=== PATIENT | male | born 1985 | race African-American/Black ===

== ENCOUNTER 2017-05-13 14:38 | Inpatient (IN) | payer SELFPAY ==
[2017-05-13] MEDS ORDERED: KETOROLAC TROMETHAMINE INJ/PF 30 MG/1 ML SDV IV ONE (15:04)
[2017-05-13] MEDS ORDERED: NORMAL SALINE 1000 ML 1,000 ML IV ONE ×2 (15:04→21:01)
--- NOTE | 2017-05-13 15:07 | ER Document Report ---
ED Medical Screen (RME) - General Chief Complaint: Abdominal Pain Stated Complaint: ABDOMINAL PAIN Time Seen by Provider: 05/13/17 15:03 Mode of Arrival: Wheelchair Information source: Patient - HPI Patient complains to provider of: abd pain Onset: This afternoon - pt. with onset of severe generalized abdominal pain starting earlier this afternoon. Took OTC pain meds without relief - Related Data Allergies/Adverse Reactions: Coconut * Allergy (Verified 05/13/17 14:44) Past Medical History Renal/ Medical History: Denies: Hx Peritoneal Dialysis Psychiatric Medical History: Reports: Hx Attention Deficit Hyperactivity Disorder, Hx Bipolar Disorder - Immunizations Hx Diphtheria, Pertussis, Tetanus Vaccination: No - unsure Physical Exam - Vital signs Vitals: Temp Pulse Resp BP Pulse Ox 97.8 F 65 16 134/72 H 100 05/13/17 14:44 05/13/17 14:44 05/13/17 14:44 05/13/17 14:44 05/13/17 14:44 Course - Vital Signs Vital signs: Temp Pulse Resp BP Pulse Ox 97.8 F 65 16 134/72 H 100 05/13/17 14:44 05/13/17 14:44 05/13/17 14:44 05/13/17 14:44 05/13/17 14:44
[2017-05-13] MEDS ORDERED: ONDANSETRON HCL INJ/PF 4 MG/2 ML SDV IV ONE (15:22)
--- NOTE | 2017-05-13 16:26 | RADIOLOGY REPORT (SQ) ---
EXAM DESCRIPTION: ACUTE ABDOMEN SERIES COMPLETED DATE/TIME: 05/13/2017 4:13 pm REASON FOR STUDY: abd pain COMPARISON: None. NUMBER OF VIEWS: Three views. TECHNIQUE: Frontal chest, supine abdomen and upright/decubitus abdomen radiographic images acquired. LIMITATIONS: None. FINDINGS: CHEST: Lungs clear of infiltrates. FREE AIR: None. No abnormal gas collections. BOWEL GAS PATTERN: Nonobstructive pattern. No dilated loops or air fluid levels. CALCIFICATIONS: No suspicious calcifications. HARDWARE: None in the abdomen. SOFT TISSUES: No gross mass or suggestion of organomegaly. BONES: No acute fracture. No worrisome bone lesions. OTHER: No other significant finding. IMPRESSION: NO RADIOGRAPHIC EVIDENCE FOR ACUTE ABDOMINAL DISEASE. TECHNICAL DOCUMENTATION: JOB ID: [id number] [employer]- All Rights Reserved
[2017-05-13 16:35] LABS: ABSOLUTE BASOPHILS # (AUTO) 0.1 10^3/uL (0.0-0.2); ABSOLUTE EOSINOPHILS # (AUTO) 0.1 10^3/uL (0.0-0.6); ABSOLUTE LYMPHOCYTES (AUTO) 0.7 10^3/uL (0.5-4.7); ABSOLUTE MONOCYTES (AUTO) 0.3 10^3/uL (0.1-1.4); ABSOLUTE NEUT (AUTO) 4.2 10^3/uL (1.7-8.2); EOSINOPHILS % (AUTO) 1.1 % (0-6); HEMATOCRIT 40.2 % (37.9-51.0); HEMOGLOBIN 13.1 g/dL (13.5-17.0); HGB HCT DIFFERENCE -0.9; LYMPHOCYTES % (AUTO) 12.8 % (13-45); MEAN CORPUSCULAR HEMOGLOBIN 26.8 pg (27.0-33.4); MEAN CORPUSCULAR HGB CONC 32.6 g/dL (32.0-36.0); MEAN CORPUSCULAR VOLUME 82 fl (80-97); RED BLOOD COUNT 4.89 10^6/uL (4.35-5.55); RED CELL DISTRIBUTION WIDTH 16.4 % (11.5-14.0); SEGMENTED NEUTROPHILS % (AUTO) 79.1 % (42-78); WHITE BLOOD COUNT 5.3 10^3/uL (4.0-10.5)
[2017-05-13 17:02] LABS: ALANINE AMINOTRANSFERASE 368 U/L (21-72); ALBUMIN 3.9 g/dL (3.5-5.0); ALKALINE PHOSPHATASE 75 U/L (38-126); ANION GAP 10 (5-19); ASPARTATE AMINO TRANSFERASE 603 U/L (17-59); BILIRUBIN,DIRECT 0.7 mg/dL (0.0-0.4); BILIRUBIN,TOTAL 0.9 mg/dL (0.2-1.3); BLOOD UREA NITROGEN 12 mg/dL (7-20); CALCIUM 9.1 mg/dL (8.4-10.2); CARBON DIOXIDE 28 mmol/L (22-30); CHLORIDE 104 mmol/L (98-107); GLUCOSE 88 mg/dL (75-110); LIPASE 103.4 U/L (23-300); POTASSIUM 3.8 mmol/L (3.6-5.0); SODIUM 141.7 mmol/L (137-145); TOTAL PROTEIN 6.8 g/dL (6.3-8.2)
[2017-05-13 17:27] LABS: APPEARANCE,URINE CLEAR; BILIRUBIN,URINE NEGATIVE (NEGATIVE); GLUCOSE, URINE NEGATIVE (NEGATIVE); KETONES,URINE NEGATIVE (NEGATIVE); LEUKOCYTE ESTERASE,URINE NEGATIVE (NEGATIVE); NITRITE,URINE NEGATIVE (NEGATIVE); PROTEIN,URINE 30 mg/dL (NEGATIVE); URINE SPECIFIC GRAVITY 1.027; UROBILINOGEN,URINE NEGATIVE mg/dL (<2.0)
--- NOTE | 2017-05-13 18:35 | ER Document Report ---
ED GI/ - General Chief Complaint: Abdominal Pain Stated Complaint: ABDOMINAL PAIN Time Seen by Provider: 05/13/17 15:03 Mode of Arrival: Wheelchair Notes: The patient is a 31-year-old male, past medical history bipolar, presents with 1 day of generalized abdominal cramping and RUQ pain. Patient says that he drinks 2 beers a day. He is also taken Tylenol for his dental pain and has not yet followed up with a dentist for his chronic right lower molar pain. Patient also says that he is having mild shortness of breath when the abdominal pain comes. Patient is eating in the emergency room. He denies chest pain, current shortness of breath, diarrhea, constipation, fevers, back pain, urinary symptoms or rash. - Related Data Allergies/Adverse Reactions: Coconut * Allergy (Verified 05/13/17 14:44) Past Medical History - General Information source: Patient - Social History Smoking Status: Unknown if Ever Smoked Family History: Reviewed & Not Pertinent Patient has suicidal ideation: No Patient has homicidal ideation: No Renal/ Medical History: Denies: Hx Peritoneal Dialysis Psychiatric Medical History: Reports: Hx Attention Deficit Hyperactivity Disorder, Hx Bipolar Disorder - Immunizations Hx Diphtheria, Pertussis, Tetanus Vaccination: No - unsure Review of Systems - Review of Systems Notes: REVIEW OF SYSTEMS: CONSTITUTIONAL: -fevers, -chills EENT: -eye pain, -difficulty swallowing, -nasal congestion, +dental pain CARDIOVASCULAR:-chest pain, -syncope. RESPIRATORY: -cough, +SOB GASTROINTESTINAL: +abdominal pain, - nausea, -vomiting, -diarrhea GENITOURINARY: -dysuria, -hematuria MUSCULOSKELETAL: -back pain, -neck pain SKIN: -rash or skin lesions. HEMATOLOGIC: -easy bruising or bleeding. LYMPHATIC: -swollen, enlarged glands. NEUROLOGICAL: -altered mental status or loss of consciousness, -headache, - neurologic symptoms PSYCHIATRIC: -anxiety, -depression. ALL OTHER SYSTEMS REVIEWED AND NEGATIVE. Physical Exam - Vital signs Vitals: Temp Pulse Resp BP Pulse Ox 97.8 F 65 16 134/72 H 100 05/13/17 14:44 05/13/17 14:44 05/13/17 14:44 05/13/17 14:44 05/13/17 14:44 - Notes Notes: PHYSICAL EXAMINATION: GENERAL: Well-appearing, well-nourished and in no acute distress. HEAD: Atraumatic, normocephalic. EYES: Pupils equal round and reactive to light, extraocular movements intact, sclera anicteric, conjunctiva are normal. ENT: nares patent, oropharynx clear without exudates. Moist mucous membranes. NECK: Normal range of motion, supple without lymphadenopathy LUNGS: Breath sounds clear to auscultation bilaterally and equal. No wheezes rales or rhonchi. HEART: Regular rate and rhythm without murmurs ABDOMEN: Soft, mild RUQ tenderness, normoactive bowel sounds. No guarding, no rebound. No masses appreciated. EXTREMITIES: Normal range of motion, no pitting or edema. No cyanosis. NEUROLOGICAL: Cranial nerves grossly intact. Normal speech, normal gait. Normal sensory and motor exams. PSYCH: Normal mood, normal affect. SKIN: Warm, Dry, normal turgor, no rashes or lesions noted. Course - Re-evaluation Re-evalutation: Patient with right upper quadrant abdominal pain and elevated LFTs. His right upper quadrant ultrasound shows thickened gallbladder wall and pericholecystic fluid. Spoke to Dr. Bullard at 21:00 and he will admit patient as inpatient to surgical floor. Will keep patient n.p.o., begin antibiotics and provide IV fluids. Patient's pain is under control at this time and he is not nauseous. - Vital Signs Vital signs: Temp Pulse Resp BP Pulse Ox 97.8 F 65 16 134/72 H 100 05/13/17 14:44 05/13/17 14:44 05/13/17 14:44 05/13/17 14:44 05/13/17 14:44 - Laboratory Result Diagrams: 05/13/17 15:40 05/13/17 15:40 Laboratory results interpreted by me: 05/13/17 05/13/17 05/13/17 15:40 15:40 16:55 Hgb 13.1 L MCH 26.8 L RDW 16.4 H Plt Count 100 L Seg Neutrophils % 79.1 H Lymphocytes % 12.8 L Direct Bilirubin 0.7 H AST 603 H ALT 368 H Urine Protein 30 H Urine Ascorbic Acid 40 H - Diagnostic Test Radiology reviewed: Image reviewed, Reports reviewed Radiology results interpreted by me: RUQ US: thickened gallbladder wall, no gallstones, moderate pericholecystic fluid Discharge - Discharge Clinical Impression: Cholecystitis Condition: Stable Disposition: ADMITTED INPATIENT Admitting Provider: Surgical[facility] - [facility] Unit Admitted: Surgical Floor
--- NOTE | 2017-05-13 20:52 | RADIOLOGY REPORT (SQ) ---
EXAM DESCRIPTION: U/S ABDOMEN LIMITED W/O DOP COMPLETED DATE/TIME: 05/13/2017 8:37 pm REASON FOR STUDY: RUQ tenderness, elevated LFTs COMPARISON: None. TECHNIQUE: Dynamic and static grayscale images acquired of the abdomen and recorded on PACS. Additio nal selected color Doppler and spectral images recorded. LIMITATIONS: None. FINDINGS: PANCREAS: No masses. Visualized pancreatic duct normal caliber. LIVER: No masses. Echotexture normal. LIVER VASCULATURE: Normal directional flow of the main portal vein and hepatic veins. GALLBLADDER: No stones identified. Abnormal wall thickness, 4 mm. Moderate pericholecystic fluid. ULTRASOUND-DETECTED SON'S SIGN: Negative. INTRAHEPATIC DUCTS AND COMMON DUCT: CBD and intrahepatic ducts normal caliber. No filling defects. INFERIOR VENA CAVA: Normal flow. AORTA: No aneurysm. RIGHT KIDNEY: Normal size. Normal echogenicity. No solid or suspicious masses. No hydronephrosis. No calcifications. PERITONEAL AND RIGHT PLEURAL SPACE: No ascites or effusions. OTHER: No other significant findings. IMPRESSION: No gallstones identified but there is Abnormal gallbladder wall thickness, 4 mm, and Mod erate pericholecystic fluid. TECHNICAL DOCUMENTATION: JOB ID: [id number] [employer]- All Rights Reserved
[2017-05-13] MEDS ORDERED: AMPICILLIN SOD/SULBACTAM 3 GM VIAL IV ONE (20:58)
[2017-05-13] MEDS ORDERED: NICOTINE 21 MG/24 HR PATCH.TD24 TD ONE (21:05)
[2017-05-13] MEDS ORDERED: HYDROMORPHONE HCL INJ/PF 2 MG/ML AMPULE IV ONE (21:05)
--- NOTE | 2017-05-13 21:46 | PDOC H&P ---
History of Present Illness Admission Date/PCP: 05/13/17 21:17 History of Present Illness: SIERRA SANTIAGO is a 31 year old male who presents to the emergency department also [facility] complaining of acute onset abdominal pain. Patient has a history of bipolar disorder, and is unaccompanied by any other adult, so his history of presenting illness is somewhat sketchy. He states that he took a bunch of pain medication and Tylenol for toothache earlier today. He then developed acute on set of abdominal pain primarily epigastric associated nausea and vomiting. He said he had a bowel movement during 1 of his episodes of vomiting. Patient denies previous episodes of abdominal pain, change in his bowel habits, or constitutional symptoms. He denies history of trauma. He does not know if a family history of gallbladder disease. He was seen in the emergency department where is found to have significant right upper quadrant tenderness, elevated transaminases, and gallbladder ultrasonography showing findings consistent with acute cholecystitis. Surgery was consulted and he was advised admission. 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 Social History Smoking Status: Current Every Day Smoker Family History Family History: Reviewed & Not Pertinent Parental Family History Reviewed: Yes Children Family History Reviewed: Yes Sibling(s) Family History Reviewed.: Yes Medication/Allergy Allergies/Adverse Reactions: Coconut * Allergy (Verified 05/13/17 14:44) Review of Systems Constitutional: PRESENT: as per HPI Eyes: PRESENT: as per HPI Ears: PRESENT: as per HPI Nose, Mouth, and Throat: PRESENT: as per HPI, headache(s) Cardiovascular: PRESENT: as per HPI Respiratory: PRESENT: as per HPI Genitourinary: PRESENT: as per HPI Musculoskeletal: PRESENT: as per HPI Integumentary: PRESENT: as per HPI Physical Exam Vital Signs: Temp Pulse Resp BP Pulse Ox 97.8 F 65 16 134/72 H 100 05/13/17 14:44 05/13/17 14:44 05/13/17 14:44 05/13/17 14:44 05/13/17 14:44 General appearance: PRESENT: no acute distress Head exam: PRESENT: normocephalic Eye exam: PRESENT: other - Right eye ptotic, sclerotic, with loss of volume and EOM not intact. Teeth exam: PRESENT: poor dentation, other Neck exam: PRESENT: full ROM Respiratory exam: PRESENT: rhonchi Cardiovascular exam: PRESENT: RRR Pulses: PRESENT: normal dorsalis pedis pul, +1 pedal pulses bilateral, +2 pedal pulses bilateral Vascular exam: PRESENT: normal capillary refill GI/Abdominal exam: PRESENT: other - Quizzically tender right upper quadrant with guarding Rectal exam: PRESENT: deferred Neurological exam: PRESENT: alert, altered, awake Psychiatric exam: PRESENT: other - Patient has a somewhat difficulty staying focused on the conversation easily distracted Skin exam: PRESENT: other - Multiple tattoos Results Impressions: Acute Abdomen Series 05/13/17 15:03 IMPRESSION: NO RADIOGRAPHIC EVIDENCE FOR ACUTE ABDOMINAL DISEASE. Abdomen Ultrasound 05/13/17 19:17 IMPRESSION: No gallstones identified but there is Abnormal gallbladder wall thickness, 4 mm, and Moderate pericholecystic fluid. Assessment & Plan - Diagnosis (1) Cholecystitis Is this a current diagnosis for this admission?: Yes Plan: As evidenced by clinical history, elevated transaminases, and abnormal ultrasonography showing gallbladder wall thickening and pericholecystic fluid. Plan: 1. Keep n.p.o., IV fluids, intravenous antibiotics 2. We will set patient up for laparoscopic, possible open cholecystectomy in the morning. 3. Patient somewhat confused, possibly scared about the expectation to stay in the hospital, and undergo surgery in the next 24 hours. Hopefully his mother will arrive and Allay some of his fears (2) Bipolar disorder Is this a current diagnosis for this admission?: Yes (3) Smoker Is this a current diagnosis for this admission?: Yes - Time Time Spent: 30 to 50 Minutes Critical Time spent with patient: Less than 15 minutes Anticipated discharge: Home - Inpatient Certification Based on my medical assessment, after consideration of the patient's comorbidities, presenting symptoms, or acuity I expect that the services needed warrant INPATIENT care.: Yes I certify that my determination is in accordance with my understanding of Medicare's requirements for reasonable and necessary INPATIENT services [42 CFR 412.3e].: Yes Medical Necessity: Need For IV Fluids, Need for Pain Control, Need for IV Antibiotics, Need for Surgery
[2017-05-13] MEDS ORDERED: ONDANSETRON HCL INJ/PF 4 MG/2 ML SDV IV PRN (21:48)
[2017-05-14] MEDS: RINGERS SOLUTION,LACTATED 1,000 ML IV PRN ×2 (01:25→20:59)
[2017-05-14] MEDS: HYDROMORPHONE HCL INJ/PF 2 MG/ML AMPULE IV PRN ×2 (01:26→08:33)
[2017-05-14] MEDS ORDERED: AMPICILLIN SOD/SULBACTAM 3 GM VIAL IV PRN (06:00)
[2017-05-14] MEDS: AMPICILLIN SODIUM/SULBACTAM NA 3 GM in NORMAL SALINE 100 ML IV SCH ×3 (06:43→21:05)
[2017-05-14] MEDS ORDERED: BUPIVACAINE HCL 0.25 % INJ/PF (2.5 MG/1 ML) 30 ML VIAL ONE (08:26)
[2017-05-14] MEDS ORDERED: HYDROMORPHONE HCL INJ/PF 2 MG/ML AMPULE ONE (09:30)
[2017-05-14] MEDS ORDERED: FENTANYL CITRATE INJ/PF 100 MCG/2 ML AMPUL ONE (09:30)
[2017-05-14] MEDS ORDERED: ACETAMINOPHEN 100 ML IV ONE (09:31)
[2017-05-14] MEDS ORDERED: IBUPROFEN INJ 800 MG/8 ML VIAL IV ONE (09:31)
[2017-05-14] MEDS ORDERED: EPHEDRINE SULFATE INJ 50 MG/1 ML AMPULE ONE (09:31)
[2017-05-14] MEDS ORDERED: MIDAZOLAM 2 MG/2 ML INJ ONE (09:31)
[2017-05-14] MEDS ORDERED: PROPOFOL INJ 200 MG/20 ML VIAL IV ONE (09:31)
[2017-05-14] MEDS ORDERED: DIPHENHYDRAMINE HCL 50 MG/ML VIAL IV PRN (10:43)
[2017-05-14] MEDS ORDERED: MEPERIDINE HCL/PF INJ 25 MG/1 ML DISP.SYRIN IV PRN (10:43)
[2017-05-14] MEDS ORDERED: FENTANYL CITRATE INJ/PF 100 MCG/2 ML AMPUL IV PRN ×3 (10:43)
[2017-05-14] MEDS ORDERED: PROMETHAZINE HCL INJ 25 MG/1 ML VIAL IV PRN ×2 (10:43)
[2017-05-14] MEDS ORDERED: ONDANSETRON HCL INJ/PF 4 MG/2 ML SDV IV PRN ×3 (10:43→11:31)
[2017-05-14] MEDS ORDERED: KETOROLAC TROMETHAMINE 10 MG TABLET PO PRN (11:31)
--- NOTE | 2017-05-14 11:31 | Operative Report ---
Operative Report DATE OF SURGERY: 05/14/17 PREOPERATIVE DIAGNOSIS: Acute cholecystitis POSTOPERATIVE DIAGNOSIS: Same with sludge OPERATION: Laparoscopic cholecystectomy SURGEON: THANIA CASTANEDA ANESTHESIA: GA TISSUE REMOVED OR ALTERED: 1 gallbladder with contents COMPLICATIONS: None ESTIMATED BLOOD LOSS: 50 INTRAOPERATIVE FINDINGS: See below PROCEDURE: The patient was taken to the preop holding area the main operating room where general anesthesia was induced. Arms were abducted, abdomen exposed, prepped and draped in sterile fashion. Surgical plan surgical timeout were conducted. Skin was any stopped with quarter percent Marcaine above the umbilicus in the subxiphoid area in the subcostal region. Initially a supraumbilical incision was made vertically with a 15 blade, an attempt was made to insert a Veress needle into the peritoneal cavity but we did not get a nice second pop sound consistent with a peritoneal penetration. Therefore I approach the right upper quadrant. Knife wound was made with 15 blade in the subcostal region, and a Veress needle was inserted peritoneal cavity. We immediately got back some blood and a little bit of bile so the Veress needle was removed. It was repositioned in a more caudal direction and we are successfully able to establish pneumoperitoneum. The Veress needle was removed and a 5 mm port was inserted and a 5 mm viewing scope was inserted. Under direct visualization without difficulty 3 additional ports were placed in the subxiphoid supraumbilical and subcostal positions for total of 4 ports We did visualize the small hole made in the anterior surface of the right lobe of the liver which was draining some blood and so this was managed with hook cautery and a small piece of Surgicel and the bleeding abated. We continue to monitor this area throughout the duration of the operation there was no further bleeding We turned our attention to the gallbladder which was acutely inflamed edematous but without any adhesions to the omentum and surrounding structures. The gallbladder was aspirated of approximately 100 cc of bile using the laparoscopic trocar device. The gallbladder was then grasped on the fundus and infundibulum and elevated away from the liver. We took down some adhesions between the infundibulum and the gastroduodenal area which mostly consisted of edema and some thin fibrous bloody adhesions but because of poor elevation of the gallbladder away from the liver bed, felt that a top down approach would be more effective and safe. Therefore the graspers were repositioned and we took the gallbladder down from the fundus all the way down to its neck. This proceeded in uneventful fashion. Visualization was excellent. The patient a significant amount of edema surrounding the gallbladder consistent with acute cholecystitis. Nonetheless this was an excellent approach and we eventually have the gallbladder suspended from its neck. There was never clearly identified cystic artery. 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 We did clip what we thought was one of those branches proximally 2 times once distally divided with scissors. The gallbladder was now suspended by its neck, as well as possibly the second branch of the cystic artery. We elected to put a 0 PDS loop around and so this was affected by placing 1 PDS loop around the neck of the gallbladder and the second midway down the cystic duct. Photos were taken. Cystic duct was divided and the gallbladder was removed from the patient at the supraumbilical port site We returned the peritoneal cavity irrigated out some residual by check for bleeding there was none. Sponge and counts correct. All ports removed under direct visualization pneumoperitoneum evacuated. Of note we did we inspected the right lobe of the liver where the Veress needle had penetrated the Kendall's capsule and there was no evidence of bile or bleeding so no drain was felt to be indicated We felt the operation was complete. Sponge and needle counts are correct. 0 Vicryl was used to close the supraumbilical fascial defect and all of the incisions closed with 3-0 Vicryl. Patient tolerated the procedure well, extubated, taken recovery in stable condition.
[2017-05-14] MEDS ORDERED: NALOXONE HCL INJ/PF 0.4 MG/1 ML SDV ONE (11:46)
[2017-05-14] MEDS ORDERED: DEXAMETHASONE SOD PHOSPHATE INJ 4 MG/1 ML VIAL ONE (12:26)
[2017-05-14] MEDS ORDERED: PHENYLEPHRINE HCL INJ/PF 10 MG/1 ML SDV ONE (12:26)
[2017-05-14] MEDS ORDERED: GLYCOPYRROLATE INJ 0.4 MG/2 ML VIAL ONE (12:26)
[2017-05-14] MEDS ORDERED: NEOSTIGMINE METHYLSULFATE 10 MG/10 ML VIAL ONE (12:26)
[2017-05-14] MEDS ORDERED: SUCCINYLCHOLINE CHLORIDE INJ 200 MG/10 ML VIAL ONE (12:26)
[2017-05-14] MEDS ORDERED: ONDANSETRON HCL INJ/PF 4 MG/2 ML SDV ONE (12:26)
[2017-05-14] MEDS ORDERED: LIDOCAINE 2% INJ-PF (20 MG/ML) 10 ML AMPUL ONE (12:26)
[2017-05-14] MEDS ORDERED: ROCURONIUM BROMIDE INJ 50 MG/5 ML VIAL IV ONE (12:26)
[2017-05-14] MEDS: KETOROLAC TROMETHAMINE INJ/PF 30 MG/1 ML SDV IV PRN ×2 (13:04→21:05)
[2017-05-14] MEDS: MORPHINE SULFATE 10 MG/ML INJ IV PRN (18:17)
--- NOTE | 2017-05-14 20:24 | EKG REPORT ---
SEVERITY:- BORDERLINE ECG - SINUS RHYTHM NONSPECIFIC ST-T CHANGES- INFERIOR LEADS : Confirmed by: Catrachito Winters MD 14-May-2017 20:23:24
[2017-05-14] MEDS ORDERED: RINGERS SOLUTION,LACTATED 1,000 ML IV PRN (21:29)
[2017-05-14] MEDS ORDERED: NICOTINE 14 MG/24 HR PATCH.TD24 TD SCH (22:00)
[2017-05-15] MEDS: AMPICILLIN SODIUM/SULBACTAM NA 3 GM in NORMAL SALINE 100 ML IV SCH ×2 (05:43→13:13)
[2017-05-15] MEDS: KETOROLAC TROMETHAMINE INJ/PF 30 MG/1 ML SDV IV PRN (07:45)
[2017-05-15] MEDS: MORPHINE SULFATE 10 MG/ML INJ IV PRN (07:46)
[2017-05-15 12:32] VITALS: BP 124/74
[2017-05-15] MEDS ORDERED: BISACODYL 10 MG SUPP.RECT PR ONE (14:00)
== END 2017-05-15 14:35 | disposition home or self-care (01) | DRG 419 ==
LOC: ER 14:38 → EH 21:17 → UNDOADMIN 21:17 → EH 21:47 → 4N 05-14 00:09
PROVIDERS: ATTEND Surgery
PROC: 0FT44ZZ Resection of Gallbladder, Percutaneous Endoscopic Approach (ICD-10-PCS; principal; 2017-05-14 10:00)
DX: K81.0 Acute cholecystitis (principal); F31.9 Bipolar disorder, unspecified; F90.9 Attention-deficit hyperactivity disorder, unspecified type; H54.41 Blindness, right eye, normal vision left eye; Z79.899 Other long term (current) drug therapy; F17.200 Nicotine dependence, unspecified, uncomplicated; Z91.018 Allergy to other foods
CPT/HCPCS: 36415; 74022; 76705; 790; 80053; 81001; 83690; 85025; 88304; 93005; 93010; 96361; 96374; 96375; 99285; J0131; J0295; J0330; J1100; J1170; J1741; J1885; J2250; J2270; J2310; J2370; J2405; J2704; J3010; J3490; J7030; J7120

== ENCOUNTER 2018-03-23 08:10 | Emergency (ER) | payer SELFPAY ==
[2018-03-23 08:15] VITALS: BP 120/73
[2018-03-23] MEDS ORDERED: POLYMYXIN B SULFATE/TMP OPH SOLN (10 ML/ER DISP) OD ONE (08:49)
--- NOTE | 2018-03-23 08:51 | ER Document Report ---
ED Eye Complaint - General Chief Complaint: Eye Problem Stated Complaint: EYE SWELLING Time Seen by Provider: 03/23/18 08:32 Mode of Arrival: Ambulatory Information source: Patient Notes: Patient is a 32-year-old male who presents to the ER today for right eye redness and watering, itching and yellow drainage that started 3 days ago. 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 TRAVEL OUTSIDE OF THE [place] IN LAST 30 DAYS: No - Related Data Allergies/Adverse Reactions: Coconut * Allergy (Verified 03/23/18 08:11) Past Medical History - General Information source: Patient - Social History Smoking Status: Current Every Day Smoker Chew tobacco use (# tins/day): No Frequency of alcohol use: Occasional Drug Abuse: None Family History: Reviewed & Not Pertinent Patient has suicidal ideation: No Patient has homicidal ideation: No Renal/ Medical History: Denies: Hx Peritoneal Dialysis Psychiatric Medical History: Reports: Hx Attention Deficit Hyperactivity Disorder, Hx Bipolar Disorder Past Surgical History: Reports: Other - 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 - Immunizations Hx Diphtheria, Pertussis, Tetanus Vaccination: No - unsure Review of Systems - Review of Systems Constitutional: No symptoms reported EENT: See HPI Cardiovascular: No symptoms reported Respiratory: No symptoms reported Gastrointestinal: No symptoms reported Genitourinary: No symptoms reported Male Genitourinary: No symptoms reported Musculoskeletal: No symptoms reported Skin: No symptoms reported Hematologic/Lymphatic: No symptoms reported Neurological/Psychological: No symptoms reported Physical Exam - Vital signs Vitals: Temp Pulse Resp BP Pulse Ox 98.4 F 76 14 120/73 98 03/23/18 08:15 03/23/18 08:15 03/23/18 08:15 03/23/18 08:15 03/23/18 08:15 - Notes Notes: PHYSICAL EXAMINATION: GENERAL: Well-appearing and in no acute distress. HEAD: Atraumatic, normocephalic. EYES: Pupils equal round and reactive to light, extraocular movements intact, sclera anicteric, conjunctiva erythematous, watering, yellow drainage to the right eye only ENT: ear canals without erythema or foreign body, TMs pearly gonzalez with good bony landmarks, nares patent, oropharynx clear without exudates. Moist mucous membranes. NECK: Normal range of motion, supple without lymphadenopathy LUNGS: CTAB and equal. No wheezes rales or rhonchi. HEART: Regular rate and rhythm without murmurs EXTREMITIES: Normal range of motion, no pitting edema. No cyanosis. NEUROLOGICAL: Cranial nerves grossly intact. Normal sensory/motor exams. PSYCH: Normal mood, normal affect. SKIN: Warm, Dry, normal turgor, no rashes or lesions noted Course - Re-evaluation Re-evalutation: 03/24/18 11:03 Patient given antibiotic eyedrops for the entire course of treatment from the ER. - Vital Signs Vital signs: Temp Pulse Resp BP Pulse Ox 98.4 F 76 14 120/73 98 03/23/18 08:15 03/23/18 08:15 03/23/18 08:15 03/23/18 08:15 03/23/18 08:15 Discharge - Discharge Clinical Impression: Right conjunctivitis Qualifiers: Conjunctivitis type: blepharoconjunctivitis Blepharoconjunctivitis type: unspecified Qualified Code(s): H10.501 - Unspecified blepharoconjunctivitis, right eye Condition: Stable Disposition: HOME, SELF-CARE Instructions: Conjunctivitis ([facility]) Additional Instructions: Return immediately for any new or worsening symptoms. Follow up with primary care provider, call tomorrow to make followup appointment. Referrals: LASHAE RIVERA DO [ACTIVE STAFF] - Follow up as needed
== END 2018-03-23 09:12 | disposition home or self-care (01) ==
LOC: ER 08:10
DX: H10.501 Unspecified blepharoconjunctivitis, right eye (principal); H54.61 Unqualified visual loss, right eye, normal vision left eye; Z91.018 Allergy to other foods
CPT/HCPCS: 99283; J3490

== ENCOUNTER 2018-11-11 10:56 | Emergency (ER) | payer SELFPAY ==
[2018-11-11] MEDS ORDERED: IBUPROFEN 800 MG TABLET PO ONE (11:38)
--- NOTE | 2018-11-11 11:41 | ER Document Report ---
HPI - HPI Patient complains to provider of: left foot pain Time Seen by Provider: 11/11/18 11:29 Onset: Last week Onset/Duration: Persistent Quality of pain: Achy Pain Level: 3 Context: Patient presents complaining of left foot pain for the past week. Patient denies any injury to the foot. Associated Symptoms: denies: Fever Exacerbated by: Standing, Movement, Walking Relieved by: Denies Similar symptoms previously: No Recently seen / treated by doctor: No - ROS ROS below otherwise negative: Yes Systems Reviewed and Negative: Yes All other systems reviewed and negative - CONSTITUTIONAL Constitutional: DENIES: Fever - MUSCULOSKELETAL Musculoskeletal: REPORTS: Extremity pain - left foot - DERM Skin Color: Normal Past Medical History - General Information source: Patient - Social History Smoking Status: Never Smoker Frequency of alcohol use: None Drug Abuse: None Occupation: [employer] Lives with: Family Family History: Reviewed & Not Pertinent Patient has suicidal ideation: No Patient has homicidal ideation: No Renal/ Medical History: Denies: Hx Peritoneal Dialysis Psychiatric Medical History: Reports: Hx Attention Deficit Hyperactivity Disorder, Hx Bipolar Disorder Past Surgical History: Reports: Hx Cholecystectomy, Other - 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 IN LAST 30 DAYS: No - HEENT HEENT: Atraumatic, Normocephalic - NECK Neck: Normal Inspection - RESPIRATORY Respiratory: No Respiratory Distress - CARDIOVASCULAR Cardiovascular: Regular Rhythm Pulses: Normal: Dorsalis pedis - MUSCULOSKELETAL/EXTREMETIES Musculoskeletal/Extremeties: MAEW, FROM, Tender - Tenderness to plantar surface of left foot underneath distal left third metatarsal, area with overlying callus, No Edema. negative: Eccymosis - NEURO Level of Consciousness: Awake, Alert, Appropriate Motor/Sensory: No Motor Deficit - DERM Integumentary: Warm, Dry, No Rash Notes: Callus to plantar surface of left foot Course - Re-evaluation Re-evalutation: 11/11/18 12:38 Without any acute fracture or foreign body noted on x-ray. Patient with likely callus to foot. Discussed with patient ways to cushion area so it is less tender when he is walking. - Vital Signs Vital signs: Temp Pulse Resp BP Pulse Ox 98.2 F 81 16 124/62 100 11/11/18 11:02 11/11/18 11:02 11/11/18 11:02 11/11/18 11:02 11/11/18 11:02 - Diagnostic Test Radiology reviewed: Image reviewed, Reports reviewed Discharge - Discharge Clinical Impression: Left foot pain, Callus of foot Condition: Stable Disposition: HOME, SELF-CARE Additional Instructions: Return immediately for any new or worsening symptoms Followup with your primary care provider, call tomorrow to make a followup appointment Wear padded foam rings to the bottom of your foot that will pad around the area of tenderness to prevent pressure on sensitive areas. Wear good supportive shoes when you are up on your feet for long periods of time. 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
--- NOTE | 2018-11-11 12:24 | RADIOLOGY REPORT (SQ) ---
EXAM DESCRIPTION: FOOT LEFT COMPLETE COMPLETED DATE/TIME: 11/11/2018 11:50 am REASON FOR STUDY: foot pain COMPARISON: None. NUMBER OF VIEWS: Three views. TECHNIQUE: AP, lateral and oblique radiographic images acquired of the left foot. LIMITATIONS: None. FINDINGS: MINERALIZATION: Normal. BONES: No acute fracture or dislocation. No worrisome bone lesions. JOINTS: No effusions. SOFT TISSUES: No soft tissue swelling. No foreign body. OTHER: No other significant finding. IMPRESSION: NEGATIVE STUDY OF THE LEFT FOOT. NO RADIOGRAPHIC EVIDENCE OF ACUTE INJURY. TECHNICAL DOCUMENTATION: JOB ID: [id number] [employer]- All Rights Reserved Reading location - IP/workstation name: [email or web address]
[2018-11-11 13:27] VITALS: BP 126/66
== END 2018-11-11 13:28 | disposition home or self-care (01) ==
LOC: ER 10:56
DX: L84 Corns and callosities (principal); M79.672 Pain in left foot
CPT/HCPCS: 99283

== ENCOUNTER 2019-04-12 10:04 | Emergency (ER) | payer SELFPAY ==
[2019-04-12 10:10] VITALS: BP 140/80
[2019-04-12] MEDS ORDERED: IBUPROFEN 800 MG TABLET PO ONE (10:43)
--- NOTE | 2019-04-12 10:45 | ER Document Report ---
HPI - HPI Patient complains to provider of: fever Time Seen by Provider: 04/12/19 10:38 Onset: Other - last night Severity: Severe Pain Level: 5 Context: This 33-year-old male presents emergency department with reports that he had a fever last night of 101.8 with chills. He also reports he had a headache. Denies vomiting diarrhea. Reports he took Tylenol last night but nothing this morning. Patient reports he has a cough. No cough noted during entire interview and exam. Patient reports he coughed last night. Denies history of asthma cardiac disease. Patient is laughing smiling no distress. Patient reports his lady is here with the same symptoms. Associated Symptoms: Chills, Nonproductive cough, Fever Exacerbated by: Denies Relieved by: Denies Similar symptoms previously: No Recently seen / treated by doctor: No Past Medical History - General Information source: Patient - Social History Smoking Status: Current Every Day Smoker Cigarette use (# per day): Yes Frequency of alcohol use: None Drug Abuse: None Occupation: [employer] Lives with: Family Family History: Reviewed & Not Pertinent Patient has suicidal ideation: No Patient has homicidal ideation: No Renal/ Medical History: Denies: Hx Peritoneal Dialysis Psychiatric Medical History: Reports: Hx Attention Deficit Hyperactivity Disorder, Hx Bipolar Disorder Past Surgical History: Reports: Hx Cholecystectomy, Other - 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 IN LAST 30 DAYS: No - HEENT HEENT: Atraumatic, Normocephalic. negative: Conjuctival Injection - blind right eye - NECK Neck: Normal Inspection, Supple. negative: Lymphadenopathy-Right - RESPIRATORY Respiratory: Breath Sounds Normal, No Respiratory Distress - CARDIOVASCULAR Cardiovascular: Regular Rate, Regular Rhythm - GI/ABDOMEN Gastrointestinal: Abdomen Soft, Abdomen Non-Tender - BACK Back: Normal Inspection - MUSCULOSKELETAL/EXTREMETIES Musculoskeletal/Extremeties: MAEW, FROM, Non-Tender - NEURO Level of Consciousness: Awake, Alert, Appropriate Motor/Sensory: No Motor Deficit - DERM Integumentary: Warm, Dry, No Rash Course - Re-evaluation Re-evalutation: 04/12/19 10:48 This 33-year-old male presents with fever last night none this morning. Reports took Tylenol last night nothing this morning. Complains of a cough headache and some chills. Denies vomiting diarrhea. Patient looks good nontoxic. Respiratory rate even unlabored clear. He was instructed on Motrin for the headache push fluids follow-up with primary care provider for continued symptoms or concerns. He was instructed to return the emergency department for difficulty breathing fever. He verbalized understand all instructions Dictation of this chart was performed using voice recognition software; there fore, there may be some unintended grammatical errors. - Vital Signs Vital signs: Temp Pulse Resp BP Pulse Ox 99.1 F 102 H 16 140/80 H 98 04/12/19 10:09 04/12/19 10:09 04/12/19 10:09 04/12/19 10:04/12/19 10:09 Discharge - Discharge Clinical Impression: Fever, Cough, Smoker, Headache Condition: Stable Disposition: HOME, SELF-CARE Instructions: Fever ([facility]), Use of Musb-Sjk-Tmffufd Ibuprofen ([facility]) Additional Instructions: *You have been evaluated for cold symptoms today, cough, fever, headache *Increase fluid intake *Monitor your temperature, take Tylenol or motrin as indicated *Follow up with a primary care provider within one week for recheck *Return to ED for worsening condition, changes, needs, concerns, difficulty breathing Monitor your blood pressure. Your blood pressure was elevated today. This may be because you were anxious, in pain or because you need medication. It is important to follow up with your primary care provider for full evaluation. Forms: Elevated Blood Pressure, Smoking Cessation Education, Return to Work
== END 2019-04-12 11:07 | disposition home or self-care (01) ==
LOC: ER 10:04
DX: R50.9 Fever, unspecified (principal); R51 Headache; R05 Cough; F17.210 Nicotine dependence, cigarettes, uncomplicated
CPT/HCPCS: 99283

== ENCOUNTER 2020-01-28 02:03 | Emergency (ER) | payer SELFPAY ==
[2020-01-28 02:18] VITALS: BP 118/71
--- NOTE | 2020-01-28 03:04 | ER Document Report ---
HPI - HPI Time Seen by Provider: 01/28/20 03:01 Pain Level: 5 Notes: 34-year-old male patient presents to the emergency department concern for burning with urination, yellowish penile discharge and a lump to the left side of his groin. Patient reports symptoms ongoing for the last few days. He denies any nausea, vomiting, diarrhea or fevers. He has had new sexual partners. He denies any history of STDs. 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 HEAD: Atraumatic, normocephalic. EYES: Pupils equal round extraocular movements intact, conjunctiva are normal. ENT: Nares patent NECK: Normal range of motion LUNGS: No respiratory distress Musculoskeletal: Normal range of motion Genitourinary: Normal external genitalia. Swollen tender lymph node noted to left inguinal area. NEUROLOGICAL: Normal speech, normal gait. PSYCH: Normal mood, normal affect. SKIN: Warm, Dry, normal turgor, no rashes or lesions noted. - INFECTION CONTROL TRAVEL OUTSIDE OF THE [place] IN LAST 30 DAYS: No Course - Re-evaluation Re-evalutation: 01/28/20 03:55 Patient treated empirically for possible sexually transmitted infections. He was given azithromycin and Rocephin. Urine culture pending. Chlamydia/gonorrhea testing pending. - Vital Signs Vital signs: Temp Pulse Resp BP Pulse Ox 97.4 F 98 16 118/71 87 L 01/28/20 02:11 01/28/20 02:07 01/28/20 02:07 01/28/20 02:07 01/28/20 02:07 Discharge - Discharge Clinical Impression: Dysuria, Penile discharge, Enlarged lymph node Condition: Stable Disposition: HOME, SELF-CARE Additional Instructions: You were seen in the emergency department today with concerns for a lump in your groin which we found to be an enlarged lymph node. I have enclosed some information below for your educational review. You were also seen with concerns for burning with urination and penile discharge. A urine culture is pending. The chlamydia and gonorrhea testing are pending. You were treated in the emergency department today with antibiotics to cover chlamydia and gonorrhea. Someone will call you if there is any abnormality with your test results. Return to the emergency department with new or worsening symptoms to include development of fever or abdominal pain. Lymphadenopathy (swollen lymph nodes) You have enlargement of lymph glands, called lymphadenopathy. Lymph glands filter tissue fluids. They help to fight infection. Most of the time, enlarged lymph glands are not serious. Lymph glands may react to a viral or bacterial infection by becoming swollen and painful. When the infection goes away, the glands shrink. Sometimes a lymph gland will remain enlarged for a long time after an infection. Occasionally, a lymph gland may be overwhelmed by infection and form an abscess. If an enlarged lymph gland has signs that are suspicious for tumor, the doctor will recommend a biopsy. A suspicious gland usually is NOT painful, grows very slowly, and is rock-hard to touch. See the doctor or return if there is increasing swelling and redness, high fever, difficulty breathing, or any other change for the worse.
[2020-01-28] MEDS ORDERED: LIDOCAINE 1% INJ-PF (10 MG/ML) 30 ML SDV IM ONE (03:40)
[2020-01-28] MEDS ORDERED: CEFTRIAXONE INJ 250 MG VIAL IM ONE (03:40)
[2020-01-28] MEDS ORDERED: AZITHROMYCIN 250 MG TABLET PO ONE (03:41)
[2020-01-28 03:50] LABS: APPEARANCE,URINE SLIGHTLY-CLOUDY; BILIRUBIN,URINE NEGATIVE (NEGATIVE); COLOR,URINE YELLOW; GLUCOSE, URINE NEGATIVE (NEGATIVE); KETONES,URINE NEGATIVE (NEGATIVE); LEUKOCYTE ESTERASE,URINE MODERATE (NEGATIVE); NITRITE,URINE NEGATIVE (NEGATIVE); PROTEIN,URINE NEGATIVE (NEGATIVE); URINE SPECIFIC GRAVITY 1.015; UROBILINOGEN,URINE NEGATIVE mg/dL (<2.0)
[2020-01-28 05:13] LABS: CHLAM PCR DETECTED (NOT DETECT)
== END 2020-01-28 04:10 | disposition home or self-care (01) ==
LOC: ER 02:03
DX: R30.0 Dysuria (principal); R36.9 Urethral discharge, unspecified; R59.0 Localized enlarged lymph nodes; F17.200 Nicotine dependence, unspecified, uncomplicated; Z20.2 Contact with and (suspected) exposure to infections with a predominantly sexual mode of transmission
CPT/HCPCS: 99283; 96372; 87086; 87088; 81001; 87491; 87591; J3490; J0696

== ENCOUNTER 2020-02-11 19:39 | Emergency (ER) | payer SELFPAY ==
[2020-02-11 19:46] VITALS: BP 107/62
--- NOTE | 2020-02-11 20:22 | ER Document Report ---
HPI - HPI Patient complains to provider of: Concern about STD Time Seen by Provider: 02/11/20 20:04 Onset: This afternoon Onset/Duration: Sudden Pain Level: Denies Context: Patient was recently treated for gonorrhea and chlamydia. Patient states that his partner told him today that she was told that she may have herpes. Patient states that he has not had intercourse since being treated for gonorrhea and chlamydia. Patient denies any skin lesions but was concerned about being exposed to herpes. Associated Symptoms: None Exacerbated by: Denies Relieved by: Denies Similar symptoms previously: No Recently seen / treated by doctor: Yes - ROS ROS below otherwise negative: Yes Systems Reviewed and Negative: Yes All other systems reviewed and negative - CONSTITUTIONAL Constitutional: DENIES: Fever, Chills - GASTROINTESTINAL Gastrointestinal: DENIES: Nausea - URINARY Urinary: DENIES: Dysuria - DERM Skin Color: Normal Skin Problems: None Past Medical History - General Information source: Patient - Social History Smoking Status: Current Every Day Smoker Frequency of alcohol use: Occasional Drug Abuse: Marijuana Family History: Reviewed & Not Pertinent Renal/ Medical History: Denies: Hx Peritoneal Dialysis Psychiatric Medical History: Reports: Hx Attention Deficit Hyperactivity Disorder, Hx Bipolar Disorder Past Surgical History: Reports: Hx Cholecystectomy, Other - 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 IN LAST 30 DAYS: No - HEENT HEENT: Atraumatic, Normocephalic - NECK Neck: Normal Inspection, Supple. negative: Lymphadenopathy-Left, Lymphadenopathy-Right - RESPIRATORY Respiratory: Breath Sounds Normal, No Respiratory Distress - CARDIOVASCULAR Cardiovascular: Regular Rate, Regular Rhythm - GI/ABDOMEN Gastrointestinal: Abdomen Soft - REPRODUCTIVE Male Genitalia: Normal Inspection Notes: RN Belle as standby - MUSCULOSKELETAL/EXTREMETIES Musculoskeletal/Extremeties: BELLO - NEURO Level of Consciousness: Awake, Alert, Appropriate Motor/Sensory: No Motor Deficit - DERM Integumentary: Warm, Dry, No Rash Course - Re-evaluation Re-evalutation: 02/11/20 20:29 Patient with normal exam at this time, patient denies being sexually active since being treated for gonorrhea and chlamydia. Patient advised of signs and symptoms to look for. Patient advised to return if he develops any abnormal skin lesions or any new or worsening symptoms. Patient encouraged to follow-up with the health department if he would like to pursue HIV testing or any additional STD screening - Vital Signs Vital signs: Temp Pulse Resp BP Pulse Ox 98.4 F 100 16 107/62 96 02/11/20 19:45 02/11/20 19:45 02/11/20 19:45 02/11/20 19:45 02/11/20 19:45 Discharge - Discharge Clinical Impression: Normal exam, concern about herpes Condition: Stable Disposition: HOME, SELF-CARE Instructions: Normal Exam and Workup ([facility]) Additional Instructions: Return immediately for any new or worsening symptoms Followup with your primary care provider, call tomorrow to make a followup appointment Follow-up with the health department if you would like additional testing Referrals: [facility] [NO LOCAL MD] - Follow up as needed
== END 2020-02-11 20:39 | disposition home or self-care (01) ==
LOC: ER 19:39
DX: Z20.2 Contact with and (suspected) exposure to infections with a predominantly sexual mode of transmission (principal)
CPT/HCPCS: 99283

== ENCOUNTER 2020-02-14 17:03 | Emergency (ER) | payer SELFPAY ==
--- NOTE | 2020-02-14 17:40 | ER Document Report ---
ED Hand/Wrist Injury - General Chief Complaint: Hand Pain Stated Complaint: HAND PAIN Time Seen by Provider: 02/14/20 17:37 Primary Care Provider: SCARLETT HARPER JR, DO [ACTIVE PROVISIONAL STAFF] - Follow up as needed Mode of Arrival: Ambulatory Information source: Patient Notes: 34-year-old male presented to ED for complaint of pain to his right hand. He states he punched a closet door couple days ago and his hand is not felt right since. He states his pain level is a 3 out of 5. Patient is alert oriented respirations regular and unlabored speaking in full sentences. TRAVEL OUTSIDE OF THE [place] IN LAST 30 DAYS: No - HPI Injury to: Hand Onset: Other - Couple days ago Where: Home, Indoors Timing: Still present Severity: Moderate Pain Level: 3 Context: Blow - Related Data Allergies/Adverse Reactions: apple Allergy (Verified 01/28/20 03:42) Coconut * Allergy (Verified 01/28/20 03:42) Past Medical History - General Information source: Patient - Social History Smoking Status: Current Every Day Smoker Cigarette use (# per day): Yes - Pack per day Smoking Education Provided: Yes - 4 minutes Frequency of alcohol use: Social Drug Abuse: Marijuana Family History: Reviewed & Not Pertinent Patient has suicidal ideation: No Patient has homicidal ideation: No - Past Medical History Cardiac Medical History: Reports: None Pulmonary Medical History: Reports: None EENT Medical History: Reports: None Neurological Medical History: Reports: None Endocrine Medical History: Reports: None Renal/ Medical History: Reports: None Malignancy Medical History: Reports None GI Medical History: Reports: None Musculoskeletal Medical History: Reports None Skin Medical History: Reports None Psychiatric Medical History: Reports: Hx Attention Deficit Hyperactivity Disorder, Hx Bipolar Disorder Traumatic Medical History: Reports: None Infectious Medical History: Reports: None Past Surgical History: Reports: Hx Cholecystectomy, Other - 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 - Immunizations Hx Diphtheria, Pertussis, Tetanus Vaccination: No - unsure Review of Systems - Review of Systems Constitutional: No symptoms reported EENT: No symptoms reported Cardiovascular: No symptoms reported Respiratory: No symptoms reported Gastrointestinal: No symptoms reported Genitourinary: No symptoms reported Male Genitourinary: No symptoms reported Musculoskeletal: Other - Pain lateral aspect of right hand Skin: No symptoms reported Hematologic/Lymphatic: No symptoms reported Neurological/Psychological: No symptoms reported Physical Exam - Vital signs Vitals: Temp Pulse Resp BP Pulse Ox 98.5 F 71 16 108/73 99 02/14/20 17:15 02/14/20 17:15 02/14/20 17:15 02/14/20 17:15 02/14/20 17:15 Interpretation: Normal - General General appearance: Appears well, Alert - HEENT Head: Normocephalic, Atraumatic Eyes: Normal Pupils: PERRL - Respiratory Respiratory status: No respiratory distress Chest status: Nontender Breath sounds: Normal Chest palpation: Normal - Cardiovascular Rhythm: Regular Heart sounds: Normal auscultation Murmur: No - Abdominal Inspection: Normal Distension: No distension Bowel sounds: Normal Tenderness: Nontender Organomegaly: No organomegaly - Back Back: Normal, Nontender - Extremities General upper extremity: Normal color, Normal ROM, Normal temperature General lower extremity: Normal inspection, Nontender, Normal color, Normal ROM, Normal temperature, Normal weight bearing. No: Kathy's sign Hand: Tender, Ecchymosis, No evidence of human bite, No evidence of FB. No: Swelling - Neurological Neuro grossly intact: Yes Cognition: Normal Orientation: AAOx4 [place] Coma Scale Eye Opening: Spontaneous Yulia Coma Scale Verbal: Oriented [place] Coma Scale Motor: Obeys Commands Yulia Coma Scale Total: 15 Speech: Normal Motor strength normal: LUE, RUE, LLE, RLE Sensory: Normal - Psychological Associated symptoms: Normal affect, Normal mood - Skin Skin Temperature: Warm Skin Moisture: Dry Skin Color: Normal Course - Re-evaluation Re-evalutation: 02/14/20 21:56 Discussed results of x-ray with patient and written report of x-ray given to patient for follow-up with primary care and/or orthopedics. There was no acute findings on the x-rays. Patient stated he had hit a closet door. There was no abnormalities noted. - Vital Signs Vital signs: Temp Pulse Resp BP Pulse Ox 98.8 F 65 16 114/75 100 02/14/20 18:29 02/14/20 18:29 02/14/20 18:29 02/14/20 18:29 02/14/20 18:29 - Diagnostic Test Radiology reviewed: Image reviewed, Reports reviewed Discharge - Discharge Clinical Impression: Contusion of right hand Qualifiers: Encounter type: initial encounter Qualified Code(s): S60.221A - Contusion of right hand, initial encounter Condition: Stable Disposition: HOME, SELF-CARE Additional Instructions: CONTUSION: Your injury has resulted in a contusion -- a crushing of the deep tissues. No injury to important structures was detected during the physician's exam. Contusions vary in the amount of pain they cause, and in the length of time required for healing. Typically, the area will become bruised, and will remain painful to touch for two or three weeks. However, most patients are back to working and playing within a few days. After the initial period of rest and cold-packs, your symptoms (together with the doctor's recommendations) will determine how rapidly you can get back to full activity. Usually this means "do what feels okay, but don't do things that hurt." If re-examination was recommended, it's important to follow up as instructed. Call the doctor or return any time if pain increases, if swelling becomes severe, if you develop numbness or weakness in an injured extremity, or if any other alarming symptoms occur. USE OF TYLENOL (ACETAMINOPHEN): Acetaminophen may be taken for pain relief or fever control. It's much safer than aspirin, offering a wider range of "safe" dosages. It is safe during . Some brand names are Tylenol, Panadol, Datril, Anacin 3, Tempra, and Liquiprin. Acetaminophen can be repeated every four hours. The following are maximum recommended dosages: WEIGHT Dose Drops Elixir Chewable(80mg) (LBS.) drprs=droppers tsp=teaspoon 6 40 mg 0.4 ml (1/2) 6-11 80 mg 0.8 ml (full) tsp 1 tab 12-16 120 mg 1 1/2 drprs 3/4 tsp 1 1/2 tabs 17-23 160 mg 2 drprs 1 tsp 2 tabs 24-30 240 mg 3 drprs 1 1/2 tsp 3 tabs 30-35 320 mg 2 tsp 4 tabs 36-41 360 mg 2 1/4 tsp 4 1/2 tabs 42-47 400 mg 2 1/2 tsp 5 tabs 48-53 480 mg 3 tsp 6 tabs 54-59 520 mg 3 1/4 tsp 6 1/2 tabs 60-64 560 mg 3 1/2 tsp 7 tabs 65-70 600 mg 3 3/4 tsp 7 1/2 tabs 71-76 640 mg 4 tsp 8 tabs 77-82 720 mg 4 1/2 tsp 9 tabs 83-88 800 mg 5 tsp 10 tabs >89 pounds or adults 650 mg to 900 mg Acetaminophen can be repeated every four hours. Maximum dose not to exceed 4000 mg a day. These maximum recommended dosages are slightly higher than the dosages written on the product container, but these dosages are very safe and below the toxic dosage for acetaminophen. ICE & ELEVATION: Apply ice packs frequently against the painful area. Many different angus edules are recommended, such as "20 minutes on, 20 minutes off" or "one hour ice, two hours rest." If you need to work, you may need to go longer between ice treatments. You should plan to have the area ice packed AT LEAST one-fourth of the time. The ice should be applied over the wrap, tape, or splint, or over a layer of cloth -- not directly against the skin. Some ice bags have a built-in cloth and can be put directly on the skin. Your injured part should be elevated as much as possible over the next 48 hours. Try to keep the injury above the level of the heart. Avoid use of the injured area. Elevation and rest will decrease the swelling. USE OF GZYD-BXE-CUWOLOW IBUPROFEN: Ibuprofen (Advil, Nuprin, Medipren, Motrin IB) is a medication for fever and pain control. In addition, it has anti- inflammatory effects which may be beneficial, especially in the treatment of injuries. It's best to take ibuprofen with food. Persons with ulcer disease or allergy to aspirin should notify their physician of this before taking ibuprofen. Ibuprofen can be given every four to six hours, for a total of four doses daily. Age Pain or fever dose Antiinflammatory dose 6-8 yr 200 mg (1 tab) 200 mg (1 tab) 9-11 yr 200 mg (1 tab) 200-400 mg (1-2 tab) 11-14 yr 200-400 mg (1-2 tab) 400 mg (2 tab) 15-adult 400 mg (2 tab) 600 mg (3 tab) FOLLOW-UP CARE: If you have been referred to a physician for follow-up care, call the [facility] office for an appointment as you were instructed or within the next two days. If you experience worsening or a significant change in your symptoms, notify the physician immediately or return to the Emergency Department at any time for re-evaluation. Forms: Smoking Cessation Education, Return to Work Referrals: SCARLETT HARPER JR, DO [ACTIVE PROVISIONAL STAFF] - Follow up as needed
[2020-02-14] MEDS ORDERED: IBUPROFEN 800 MG TABLET PO ONE (17:57)
--- NOTE | 2020-02-14 18:04 | RADIOLOGY REPORT (SQ) ---
EXAM DESCRIPTION: HAND RIGHT 3 VIEWS IMAGES COMPLETED DATE/TIME: 02/14/2020 5:50 pm REASON FOR STUDY: Punched a closet door pain injury COMPARISON: None. EXAM PARAMETERS: NUMBER OF VIEWS: Three views. TECHNIQUE: AP, lateral and oblique radiographic images acquired of the right hand. LIMITATIONS: None. FINDINGS: MINERALIZATION: Normal. BONES: No acute fracture or dislocation. No worrisome bone lesions. JOINTS: No effusions. SOFT TISSUES: No soft tissue swelling. No foreign body. OTHER: No other significant finding. IMPRESSION: NEGATIVE STUDY OF THE RIGHT HAND. NO RADIOGRAPHIC EVIDENCE OF ACUTE INJURY. TECHNICAL DOCUMENTATION: JOB ID: [id number] 2010 [employer]- All Rights Reserved Reading location - IP/workstation name: [email or web address]
[2020-02-14 18:31] VITALS: BP 114/75
== END 2020-02-14 18:32 | disposition home or self-care (01) ==
LOC: ER 17:03
DX: S60.221A Contusion of right hand, initial encounter (principal); M79.641 Pain in right hand; W22.8XXA Striking against or struck by other objects, initial encounter; Y92.009 Unspecified place in unspecified non-institutional (private) residence as the place of occurrence of the external cause; F12.10 Cannabis abuse, uncomplicated; F17.210 Nicotine dependence, cigarettes, uncomplicated; Z71.6 Tobacco abuse counseling; Z91.018 Allergy to other foods
CPT/HCPCS: 99283; 99406

== ENCOUNTER 2020-04-14 14:53 | Emergency (ER) | payer OTHER ==
--- NOTE | 2020-04-14 16:45 | ER Document Report ---
HPI - HPI Time Seen by Provider: 04/14/20 16:42 Notes: Patient is a 34-year-old male presents the emergency department concern for left third digit pain. Patient reports about 1 week ago he got cut with glass. He is concerned there may be retained glass. He states it is getting swollen and more painful. He states his tetanus is up-to-date. He has no chronic medical conditions. 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 HEAD: Atraumatic, normocephalic. EYES: Pupils equal round extraocular movements intact, conjunctiva are normal. ENT: Nares patent NECK: Normal range of motion LUNGS: No respiratory distress Musculoskeletal: Normal range of motion NEUROLOGICAL: Normal speech, normal gait. PSYCH: Normal mood, normal affect. SKIN: Swelling and slight erythema noted to the left third digit, normal range of motion, swelling is noted at the PIP. - INFECTION CONTROL TRAVEL OUTSIDE OF THE [place] IN LAST 30 DAYS: No Course - Re-evaluation Re-evalutation: X-ray unremarkable. Patient has full range of motion. Patient does have some swelling and erythema, this was cleaned and incised with a scalpel, we did receive a small amount of purulent drainage from the area. Patient will be started on cephalexin, strict ED return precautions discussed, patient verbalized understanding and agreement with same. - Vital Signs Vital signs: Temp Pulse Resp BP Pulse Ox 98.6 F 82 16 133/69 H 97 04/14/20 14:57 04/14/20 14:57 04/14/20 14:57 04/14/20 14:57 04/14/20 14:57 Procedures - Incision and Drainage Left middle finger Type: Simple Anesthetic type: 1% Lidocaine Blade size: 11 I&D procedure: Betadine prep applied Incision Method: Incision made by scalpel Discharge - Discharge Clinical Impression: Finger infection Condition: Stable Disposition: HOME, SELF-CARE Additional Instructions: Soak the area and hot water 3-4 times daily, add some Epsom salts if possible. Keep the area clean and dry. It is very important to take all the antibiotics as prescribed. You may shower but do not soak it in any dirty water such as sink water from dishes. Return to the emergency department with any new or worsening concerns. Return to the emergency department if there is significantly increased swelling. Prescriptions: Sulfamethoxazole/Trimethoprim [Bactrim Ds Tablet] 1 tab PO BID #14 tablet
--- NOTE | 2020-04-14 17:04 | RADIOLOGY REPORT (SQ) ---
EXAM DESCRIPTION: FINGER LEFT IMAGES COMPLETED DATE/TIME: 04/14/2020 4:52 pm REASON FOR STUDY: ? dislocation vs retained FB? COMPARISON: None. NUMBER OF VIEWS: Three views. TECHNIQUE: AP, lateral, and oblique images acquired of the left third finger. LIMITATIONS: None. FINDINGS: MINERALIZATION: Normal. BONES: No acute fracture or dislocation. No worrisome bone lesions. SOFT TISSUES: There is soft tissue swelling on the volar aspect of the 3rd digit. No radiopaque fore ign body is appreciated. OTHER: No other significant finding. IMPRESSION: Soft tissue swelling. No foreign body. No dislocation. TECHNICAL DOCUMENTATION: JOB ID: [id number] 2010 [employer]- All Rights Reserved Reading location - IP/workstation name: [email or web address]
[2020-04-14] MEDS ORDERED: LIDOCAINE 1% INJ-PF (10 MG/ML) 30 ML SDV INJ ONE (18:25)
[2020-04-14 19:20] VITALS: BP 137/79
== END 2020-04-14 19:19 | disposition home or self-care (01) ==
LOC: ER 14:53
DX: L08.9 Local infection of the skin and subcutaneous tissue, unspecified (principal); M79.645 Pain in left finger(s); F17.200 Nicotine dependence, unspecified, uncomplicated; Z90.49 Acquired absence of other specified parts of digestive tract
CPT/HCPCS: 26010; 99283; 73140; J3490

== ENCOUNTER 2020-06-10 15:25 | Emergency (ER) | payer SELFPAY ==
--- NOTE | 2020-06-10 16:00 | ER Document Report ---
ED Medical Screen (RME) - General Chief Complaint: Suicidal Ideation Stated Complaint: SUICIDAL IDEATION Time Seen by Provider: 06/10/20 15:51 TRAVEL OUTSIDE OF THE [place] IN LAST 30 DAYS: No - HPI Notes: 06/10/20 15:58 34-year-old male presents to the emergency room with cutting his left forearm while at work today, states he wants to harm himself he had a recent bad break- up with his ex is going through a hard time. Denies any homicidal ideation, ingestion of any chemicals or alcohol or illicit drugs. Denies any chest pain, shortness of breath, blurred vision, double vision, loss of vision, light headedness, dizziness. Patient brought himself in today, did not come by mobile crisis. I have greeted and performed a rapid initial assessment of this patient. A comprehensive ED assessment and evaluation of the patient, analysis of test results and completion of the medical decision making process will be conducted by additional ED providers. PHYSICAL EXAMINATION: GENERAL: Well-appearing, well-nourished and in no acute distress. HEAD: Atraumatic, normocephalic. EYES: Pupils equal round extraocular movements intact, conjunctiva are normal.Teary CV: s1, s2 regular LUNGS: No respiratory distress Musculoskeletal: Normal range of motion NEUROLOGICAL: Normal speech, normal gait. SKIN: Warm, Dry, normal turgor, no rashes or lesions noted. Superficial lacerations to volar aspect of left forearm - Related Data Allergies/Adverse Reactions: apple Allergy (Verified 01/28/20 03:42) Coconut * Allergy (Verified 01/28/20 03:42) Past Medical History Psychiatric Medical History: Reports: Hx Attention Deficit Hyperactivity Disorder, Hx Bipolar Disorder Past Surgical History: Reports: Hx Cholecystectomy, Other - Traumatic injury to the right eye 20/10 with blindness - Immunizations Hx Diphtheria, Pertussis, Tetanus Vaccination: No - unsure Physical Exam - Vital signs Vitals: Temp Pulse Resp BP Pulse Ox 98.7 F 76 16 117/67 99 06/10/20 15:41 06/10/20 15:41 06/10/20 15:41 06/10/20 15:41 06/10/20 15:41 Course - Vital Signs Vital signs: Temp Pulse Resp BP Pulse Ox 98.7 F 76 16 117/67 99 06/10/20 15:41 06/10/20 15:41 06/10/20 15:41 06/10/20 15:41 06/10/20 15:41
[2020-06-10 16:55] LABS: ABSOLUTE EOSINOPHILS # (AUTO) 0.3 10^3/uL (0.0-0.6); ABSOLUTE LYMPHOCYTES (AUTO) 1.1 10^3/uL (0.5-4.7); ABSOLUTE MONOCYTES (AUTO) 0.6 10^3/uL (0.1-1.4); BASOPHILS % (AUTO) 1.2 % (0-2); EOSINOPHILS % (AUTO) 6.3 % (0-6); HEMATOCRIT 36.2 % (37.9-51.0); HEMOGLOBIN 12.6 g/dL (13.5-17.0); LYMPHOCYTES % (AUTO) 27.3 % (13-45); MEAN CORPUSCULAR HEMOGLOBIN 27.8 pg (27.0-33.4); MEAN CORPUSCULAR HGB CONC 34.8 g/dL (32.0-36.0); MEAN CORPUSCULAR VOLUME 80 fl (80-97); MONOCYTES % (AUTO) 14.4 % (3-13); PLATELET COUNT 228 10^3/uL (150-450); RED BLOOD COUNT 4.53 10^6/uL (4.35-5.55); RED CELL DISTRIBUTION WIDTH 14.9 % (11.5-14.0); SEGMENTED NEUTROPHILS % (AUTO) 50.8 % (42-78); TOTAL CELLS COUNTED % (AUTO) 100 %
[2020-06-10 17:14] LABS: ALBUMIN 3.5 g/dL (3.5-5.0); ALKALINE PHOSPHATASE 49 U/L (38-126); ANION GAP 5 (5-19); ASPARTATE AMINO TRANSFERASE 30 U/L (17-59); BILIRUBIN,DIRECT 0.2 mg/dL (0.0-0.4); BILIRUBIN,TOTAL 0.3 mg/dL (0.2-1.3); BLOOD UREA NITROGEN 11 mg/dL (7-20); CALCIUM 8.5 mg/dL (8.4-10.2); CARBON DIOXIDE 27 mmol/L (22-30); CHLORIDE 107 mmol/L (98-107); GLUCOSE 84 mg/dL (75-110); POTASSIUM 4.2 mmol/L (3.6-5.0); TOTAL PROTEIN 5.8 g/dL (6.3-8.2)
[2020-06-10 17:15] LABS: ACETAMINOPHEN < 10 ug/mL (10-30); ALCOHOL < 10 mg/dL (NONE DETECTED); SALICYLATE < 1.0 mg/dL (2.0-20.0)
[2020-06-10 17:46] LABS: APPEARANCE,URINE CLEAR; BILIRUBIN,URINE NEGATIVE (NEGATIVE); COLOR,URINE YELLOW; GLUCOSE, URINE NEGATIVE (NEGATIVE); KETONES,URINE NEGATIVE (NEGATIVE); LEUKOCYTE ESTERASE,URINE NEGATIVE (NEGATIVE); NITRITE,URINE NEGATIVE (NEGATIVE); PROTEIN,URINE NEGATIVE (NEGATIVE); URINE SPECIFIC GRAVITY 1.018; UROBILINOGEN,URINE NEGATIVE mg/dL (<2.0)
[2020-06-10 18:04] LABS: URINE BARBITURATES SCREEN NEGATIVE; URINE BENZODIAZEPINES SCREEN NEGATIVE; URINE COCAINE SCREEN NEGATIVE; URINE METHADONE SCREEN NEGATIVE; URINE PHENCYCLIDINE SCREEN NEGATIVE
[2020-06-10 18:07] LABS: URINE MARIJUANA (THC) SCREEN UNCONFIRMED POSITIVE
[2020-06-10] MEDS ORDERED: NICOTINE 21 MG/24 HR PATCH.TD24 TD ONE (18:23)
[2020-06-10] MEDS ORDERED: DIPH/PERTUSS(ACELL)/TETANUS VAC/PF 0.5 ML SYR (>=10YO) IM ONE (18:47)
--- NOTE | 2020-06-10 18:47 | ER Document Report ---
ED General - General Chief Complaint: Suicidal Ideation Stated Complaint: SUICIDAL IDEATION Time Seen by Provider: 06/10/20 15:51 TRAVEL OUTSIDE OF THE [place] 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 States that he is recently broken up with his fiance and is very depressed about this. He denies prior mental health or detox admissions. He admits use of marijuana but denies using other drugs. Reports he has been having auditory hallucinations commanding him to kill himself. His tetanus booster is unknown. No service. States that he drinks alcohol occasionally but denies abuse of alcohol or any history of alcohol withdrawal syndrome. 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 HENT: Negative for sore throat. Eyes: Negative for visual changes. Cardiovascular: Negative for chest pain. Respiratory: Negative for shortness of breath. Gastrointestinal: Negative for abdominal pain, vomiting or diarrhea. Genitourinary: Negative for dysuria. Musculoskeletal: Negative for back pain. Skin: Negative for rash. Neurological: Negative for headaches, weakness or numbness. 10 point ROS negative except as marked above and in HPI. Physical Exam - Vital signs Vitals: Temp Pulse Resp BP Pulse Ox 98.7 F 76 16 117/67 99 06/10/20 15:41 06/10/20 15:41 06/10/20 15:41 06/10/20 15:41 06/10/20 15:41 - Notes Notes: GENERAL: Well-developed well-nourished appearing in no acute distress. SKIN: Good turgor no rashes. HEAD: Normocephalic atraumatic. EYES: PERRLA. EOMI. Conjunctivae and sclerae clear. EARS: CANALS AND TMS CLEAR. NOSE: CLEAR. MOUTH: Moist mucosa. Good dentition. No stridor or edema. No drooling. NECK: Supple. No masses or thyromegaly. No adenopathy. Carotids 2+ without bruits. No JVD. BACK: Symmetrical without tenderness. CHEST: Respirations unlabored. Breath sounds clear and symmetrical. HEART: Regular rhythm. No murmur gallop or rub. ABDOMEN: Soft nontender without masses, organomegaly or rebound. Bowel sounds normally active. No bruits. GENITALIA: Deferred. EXTREMITIES: No edema. No calf tenderness. Cap refill less than 1.5 seconds. Dorsalis pedis and posterior tibial pulses 3+ and symmetrical. NEUROLOGICAL: GCS 15. Alert and oriented x3. Normal gait. Fluent speech. Cranial nerves II through XII intact. Sensorimotor and cerebellar normal. Normal tone. PSYCHIATRIC: Appropriate affect. Course - Re-evaluation Re-evalutation: 06/10/20 19:37 Urine specimen is positive for amphetamines. Patient is reporting command Tory hallucinations advising him to kill himself. We have petitioned for IVC. - Vital Signs Vital signs: Temp Pulse Resp BP Pulse Ox 98.7 F 76 16 117/67 99 06/10/20 15:41 06/10/20 15:41 06/10/20 15:41 06/10/20 15:41 06/10/20 15:41 - Laboratory Result Diagrams: 06/10/20 16:35 06/10/20 16:35 Laboratory results interpreted by me: 06/10/20 06/10/20 16:35 16:35 Hgb 12.6 L Hct 36.2 L RDW 14.9 H [place] % (Auto) 14.4 H Eos % (Auto) 6.3 H Total Protein 5.8 L Salicylates < 1.0 L Acetaminophen < 10 L Discharge - Discharge Clinical Impression: Suicidal ideation, Self mutilating behavior, Major depression with psychotic features, Amphetamine abuse Disposition: PSYCH HOSP/UNIT
--- NOTE | 2020-06-10 19:05 | PSYCHOLOGICAL NOTE ---
Psych Note - Psych Note Date seen by psych provider: 06/10/20 Time seen by psych provider: 17:56 - Evaluation with patient from [id number]. Psych Note: Patient is a 34 year old male who presented to the Emergency Department late afternoon via privately owned vehicle/boss for cutting left arm while at work first with a butter knife then with a steak knife, multiple superficial lacerations to left arm, none required stitched or sutures, bleeding controlled and most have started to scab. Patient reported "I'm tired of life." He stated during the moment he didn't even realize what he was doing. He stated his boss got him to the hospital. He identified stress related to relationship (recent break up with girlfriend of 2 years, reported he put girlfriend and her kid first), barely making ends meet, distrust with family (mother had abortions so anger towards her, not being able to say goodbye to his grandfather who just before patient's birthday this past September 2019), residing with sister and most days not even wanting to go home after work. He denied being connected or linked to local mental health services. He acknowledged previous suicide attempts when he was 13 years old. He reported smoking weed but denied other drug and alcohol use. His Urine Drug Screen was positive for methamphetamine and cannabis. Patient stated "I am broken physically and mentally, I am battling with myself about staying and getting help, I am scared of what I might do I can't stay away from sharp objects, I never dealt with my issues, I have held my emotions in, it's hard to explain it all." He reported "I don't think I can take any more bad or negative news." Patient said he was not montero of family mental health history and noted his grandfather that just was an alcoholic which made patient ease up on drinking. Patient was alert and oriented to self, person, place, time and situation. Mood was depressed with congruent affect as evidenced by being tearful. He denied homicidal ideation but endorsed suicidal ideation saying "I'm tired of life" and presented after cutting himself at work with a butter knife then steak knife. Patient did not appear to be responding to internal stimuli as evidenced by fair eye contact and answering questions appropriately when addressed. he however reported to the ED Physician he had auditory command hallucinations telling him to kill himself. Thought processes were linear. Conversational speech was within normal limits for rate, tone and prosody. Intellectual abilities are estimated to be average. Insight, judgment and impulse control were poor as evidenced by positive urine drug screen and suicidal ideation. Patient's eyes were blood shot and he seemed to have slower processing given amount of time for responses. Attending ED Physician stated patient told him he was hearing voices telling him to kill self. He also stated patient was tearful when he told him about these voices. Clinical Presentation: Suicidal Ideation with action via cutting left arm superficially with first butter knife then steak knife while at work today Psychosocial Stress- poor finances, was staying in hotel, now staying with sister as last resort Familial issues- holds blame on mother for her , upset was not able to say goodbye to grandfather who just before patient's birthday this past September 2019 Uncomplicated Bereavement Medication recommendations made by the psychiatric medication provider Dr. Brian POZO, includes: Add Thorazine 50MG by mouth or Intramuscular once now for psychosis (likely related to methamphetamine) Add Cogentin 1MG by mouth or Intramuscular once now to curb tremor side effects often associated with antipsychotic medications Add Thorazine 50MG by mouth or Intramuscular every 6 hours as needed for psychosis Add Cogentin 1MG by mouth or Intramuscular to be given with Thorazine to curb tremor side effects often associated with antipsychotic medications Impression/Plan: Recommendation for FULL Involuntary Commitment. Patient presented with suicidal ideation and action via cutting left arm multiple times superficially with first butter knife then steak knife while at work. He reported he can't stay away from sharp objects. He noted stress with a recent break up, family, and finances. He told the medical provider he was experiencing voices telling him to kill himself. Urine Drug Screen is positive for cannabis (admitted to) and methamphetamine (denied other drug use). Consulted with Dr. Bloom regarding the management and care of patient. ED Physician in agreement with recommendations. Involuntary referral sent to [facility].
[2020-06-10] MEDS ORDERED: CHLORPROMAZINE HCL 50 MG TABLET PO PRN (19:31)
[2020-06-10] MEDS ORDERED: BENZTROPINE MESYLATE 1 MG TABLET PO PRN (19:33)
[2020-06-11] MEDS ORDERED: DIPH/PERTUSS(ACELL)/TETANUS VAC/PF 0.5 ML SYR (>=10YO) IM ONE (08:45)
--- NOTE | 2020-06-11 12:52 | PSYCHOLOGICAL NOTE ---
Psych Note - Psych Note Date seen by psych provider: 06/11/20 Time seen by psych provider: 11:30 Psych Note: Reason for Consult:Suicidal ideation with self harm Consent Permissions: Girl Friend Patient arrived to [facility] ED via privately owned vehicle/boss for cutting left arm while at work first with a butter knife then with a steak knife, multiple superficial lacerations to left arm, none required stitched or sutures, bleeding controlled and most have started to scab. Check in conducted with patient: Patient reports he came to [facility] ED after having thoughts of harming himself. He denies current thoughts and denies that he wants to . Patient admits to past events of meth psychosis ("Oh ya, you mean meth monsters, meth shadows and stuff you get after taking...ya no, not now but I have had it before." ) however continues to report he is "unsure" the past time he used meth (patient's toxicology screening was probable positive for amphetamines). Patient is currently not demonstrating any behaviours of responding to internal stimuli ie good eye contact, normal conversational speech, organized, linear, and logical thought processes. Patient reports that he feels his meth use has enhanced his suicidal ideation and has been using "a long time and he got out of hand." Patient reports he lives with family but declines consent to contact them, providing his girl friend as contact instead. When asked about his previous disclosure yesterday of a recent break-up he reports that that was his previous girlfriend. He has been with his new girlfriend for 9 months. Clinician contacted patient's identified girlfriend Leesa. She discloses she has no concerns with the patient returning home and confirm she would be part of patient's plan of care i.e. no access to medication weapons and will follow through with mental health recommendations. 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 Clinical Presentation: Suicidal gesture via cutting left arm superficially with first butter knife then steak knife while at work Psychosocial Stress- poor finances, was staying in hotel, now staying with sister as last resort Family Discord- holds blame on mother for her , upset was not able to say goodbye to grandfather who just before patient's birthday this past September 2019 Uncomplicated Bereavement IVC Criteria per [facility] 122C Dangerous to others Within the relevant past the individual No has inflicted or attempted to inflict or threatened to inflict serious bodily harm on another AND No that there is a reasonable probability that this conduct will be repeated. OR No has acted in such a way as to create a substantial risk of serious bodily harm to another AND No that there is a reasonable probability that this conduct will be repeated. OR No has engaged in extreme destruction of property AND NO that there is a reasonable probability that this conduct will be repeated. Previous episodes of dangerousness to others, when applicable, may be considered when determining reasonable probability of future dangerous conduct. Clear, cogent, and convincing evidence that an individual has committed a homicide in the relevant past is prima facie evidence of dangerousness to others. Dangerous to self Within the relevant past the individual has done any of the following: acted in such a way as to show ALL of the following: No The individual would be unable without care, supervision, and the continued assistance of others not otherwise available, to exercise self- control, judgment, and discretion in the conduct of the individual's daily r esponsibilities and social relations or to satisfy the individual's need for nourishment, personal or medical care, prison, or self-protection and safety. AND No There is a reasonable probability of the individual suffering serious physical debilitation within the near future unless adequate treatment is given. A showing of behavior that is grossly irrational, of actions that the individual is unable to control, of behavior that is grossly inappropriate to the situation, or of other evidence of severely impaired insight and judgment shall create a prima facie inference that the individual is unable to care for himself or herself. OR YES has attempted suicide or threatened suicide AND No that there is a reasonable probability of suicide unless adequate treatment is given Patient engaged in suicidal gesture of cutting. Patient had superficial cuts on the top of his forearm near his wrist area upon arrival, today scabs are very difficult to see and had to be pointed out to clinician by patient. It is believed that the patient was under the influence when he engaged in self-harm. Today he denies wanting to harm himself and denies wanting to . OR No has mutilated himself or herself or attempted to mutilate himself or herself AND No that there is a reasonable probability of serious self-mutilation unless adequate treatment is given. NOTE: Previous episodes of dangerousness to self, when applicable, may be considered when determining reasonable probability of physical debilitation, suicide, or self-mutilation. Medication recommendations per [facility] contracted psychiatrist are as follows: Impression\\plan: Patient is recommended for rescind of IVC and is cleared from acute psychiatric services. Patient engaged in suicidal gesture of cutting the top of his forearm near his wrist yesterday while it is believed he was under the influence. Patient's cuts are superficial and had to be pointed out to clinician today as the scabs are very difficult to see. Patient is no longer under the influence and denies any thoughts of wanting to harm himself or wanting to . Patient's current girlfriend of 9 months confirm she will be part of plan of care i.e. no access to medications and weapons and will follow through with mental health recommendations. Patient is recommended to follow-up with both mental health and substance abuse treatment. It is recommended after obtaining outpatient services to discuss both medication management and therapy options. Dr. Bloom was consulted to care management of this patient; attending physicians in agreement with recommendations and disposition. Case management: IVC paperwork signed and placed in patient's chart. Patient identifies girlfriend and transportation home; however, if she is unable he reports he can use transit bus. Patient was provided local resource list of area provider for mental health and substance abuse, detox facilities and mobile crisis contact information.
[2020-06-11 14:15] VITALS: BP 110/68
== END 2020-06-11 14:28 | disposition home or self-care (01) ==
LOC: ER 15:25
DX: R45.851 Suicidal ideations (principal); F32.3 Major depressive disorder, single episode, severe with psychotic features; F15.10 Other stimulant abuse, uncomplicated; F12.10 Cannabis abuse, uncomplicated; S51.812A Laceration without foreign body of left forearm, initial encounter; W45.8XXA Other foreign body or object entering through skin, initial encounter; F17.200 Nicotine dependence, unspecified, uncomplicated; Z90.49 Acquired absence of other specified parts of digestive tract; Z91.5 Personal history of self-harm; Z23 Encounter for immunization
CPT/HCPCS: 36415; 80053; 80307; 81001; 85025; 90471; 90715; 99285